=== PATIENT | female | born 1970 | race Caucasian/White ===

== ENCOUNTER → 2018-03-23 | Day surgery (SDC) | payer OTHER, BC ==
--- NOTE | 2018-03-24 11:47 | PATH ---
Surgical Pathology Report Patient Name: MELANIE [facility]CCL[facility]. Rec. #: [id number] /Age/Gender: 1970 (Age: 47) / F Account: [id number] Location: RADIOLOGY [facility] Taken: 03/23/2018 Received: 03/23/2018 Reported: 03/24/2018 Physicians: Kamila Martinez M.D. Specimen(s) Received LEFT BREAST 7:00 Clinical History Nonpalpable lesion Ultrasound findings: Suspicious 0.6 cm mass Final Diagnosis BREAST, LEFT, 7:00, ULTRASOUND GUIDED CORE BIOPSY: FIBROADENOMA WITH RARE MICROCALCIFICATIONS. Electronically Signed Lisa Chow M.D. Gross Description Received in formalin labeled "left breast 7:00," are 7 stover-yellow, cylindrical portions of fibroadipose tissue ranging from 0.3-1.4 cm in length and averaging 0.1 cm in diameter. The specimens are submitted in toto in one cassette. Time to formalin fixation: Less than one minute Total formalin fixation time: Approximately 8 hours. /03/23/2018 saudi/03/23/2018
== END | disposition home or self-care (01) ==
LOC: JRADUS-SUR 09:23
PROVIDERS: ATTEND Obstetrics & Gynecology
PROC: 0HBU3ZX Excision of Left Breast, Percutaneous Approach, Diagnostic (ICD-10-PCS; principal; 2018-03-23)
DX: D24.2 Benign neoplasm of left breast (principal)
CPT/HCPCS: 19083; 87899; 88305-TC; A4648